=== PATIENT | female | born 1980 | race Caucasian/White ===

== ENCOUNTER 2021-02-26 00:45 | Day surgery (SDC) | payer BC, SELFPAY ==
[2021-02-16 09:16] VITALS: BMI 22.4
[2021-02-26 06:25] VITALS: BP 97/78; PULSE 86; RESP 16; TEMP 36.4; O2SAT 98
[2021-02-26] MEDS: LACTATED RINGERS 1,000 ML 150 ML IV CONT (06:45)
--- NOTE | 2021-02-26 07:16 | WPDANESEPPF ---
Anes - Initial Pre Proc Eval Procedure: Operation Date: 02/26/21 07:30 Proposed Procedures p Colonoscopy - Jerry Norman MD Date/Time: 02/26/21 07:16 Surgeon: Jerry Norman MD Pre Op Diagnosis: Rectal Bleeding Patient Data Age: 40 Gender: F Height: 1.65 m Weight: 60.5 kg Last Vital Signs Temp 97.5 F L 02/26/21 06:25 Pulse 86 02/26/21 06:25 Resp 16 02/26/21 06:25 BP 97/78 L 02/26/21 06:25 Pulse Ox 98 02/26/21 06:25 Allergies Allergy/AdvReac Type Severity Reaction Status Date / Time cephalexin Allergy Intermediate hives Verified 02/26/21 06:23 Sulfa (Sulfonamide Allergy Intermediate Hives Verified 02/26/21 06:23 Antibiotics) Home Medications Medication Instructions Recorded Confirmed Type levothyroxine 88 mcg capsule 88 mcg PO DAILY 01/10/21 02/26/21 History Adults Multivitamin 1 tab-cap PO DAILY 02/16/21 02/26/21 History Patient hx anesthesia problems: none Family hx anesthesia problems: none PMFSH Past Medical History Medical History (Updated 01/10/21 @ 09:41 by Dottie Thompson MA) Jaw cyst Thyroid disorder Family History Family History (Updated 01/10/21 @ 09:42 by Dottie Thompson MA) Mother Hypertension Alcohol abuse Father Family history of lung cancer Other Family history of emphysema Family history of thyroid disease Social History Social History (Updated 01/10/21 @ 09:43 by Dottie Thompson MA) Smoking status: Never smoker Alcohol intake: current Drinks per week: 2 Substance use: never Substance use type: does not use Living arrangements: with family 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 Gender identity (if verbalized by the patient): Female Sexual Orientation (if Verbalized by the Patient): Straight or Heterosexual Spiritual care concerns: No Agree to blood products: Yes Anes - Eval Final PreProcedure Day of Procedure 02/26/21 07:16 Patient weight: normal Heart: regular rate and rhythm Lungs: clear to auscultation Airway: Mallampati scale class II Neurological: alert and oriented Last oral intake: >/= 8 hours ASA classification: II Emergent: no Anesthetic plan: proceed Anesthesia type and monitoring: general GIVS and standard monitoring Informed Consent: The patient's anesthetic plan and its attendant risks and benefits were discussed with the patient/family/POA. Questions were solicited and answers provided to the satisfaction of the patient/family/POA.
--- NOTE | 2021-02-26 07:29 | PM.HPGS ---
History of Present Illness History of Present Illness Consent: Risks, benefits, and alternatives have been discussed and questions answered. Patient agrees to proceed with procedure. Chief complaint: Rectal Bleeding Narrative: Sarina Reardon is a 40 year old female with intermittent rectal bleeding, never had colonoscopy Review of Systems Constitutional: Constitutional: Denies headache(s) and Denies weakness Eyes: Eyes: Denies blurry vision ENT: Reports Normal hearing present, Denies headache(s) and Denies neck pain Cardiovascular: Cardiovascular: Denies chest pain and Denies dyspnea Respiratory: Respiratory: Denies dyspnea Gastrointestinal: Gastrointestinal: Reports no additional gastrointestinal complaints Genitourinary: Genitourinary: Denies dysuria Musculoskeletal: Musculoskeletal: Denies neck pain Integumentary/Breasts: Skin/Breast: Denies dry skin Neurologic: Reports Normal hearing present, Denies headache(s) and Denies weakness Psychiatric: Psychiatric: Denies anxiety Endocrine: Endocrine: Denies change in body appearance Hematologic/Lymphatic: Hematologic/Lymphatic: Denies easy bleeding Allergic/Immunologic: Allergic/Immunologic: Denies urticaria PMFSH Past Medical History Medical History (Updated 02/26/21 @ 07:30 by Jerry Norman MD) Jaw cyst Rectal bleeding Thyroid disorder Family History Family History (Updated 01/10/21 @ 09:42 by Dottie Thompson MA) Mother Hypertension Alcohol abuse Father Family history of lung cancer Other Family history of emphysema Family history of thyroid disease Social History Social History (Updated 01/10/21 @ 09:43 by Dottie Thompson MA) Smoking status: Never smoker Alcohol intake: current Drinks per week: 2 Substance use: never Substance use type: does not use Living arrangements: with family 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 Gender identity (if verbalized by the patient): Female Sexual Orientation (if Verbalized by the Patient): Straight or Heterosexual Spiritual care concerns: No Agree to blood products: Yes Meds Home Medications and Allergies Home Medications Medication Instructions Recorded Confirmed Type levothyroxine 88 mcg capsule 88 mcg PO DAILY 01/10/21 02/26/21 History Adults Multivitamin 1 tab-cap PO DAILY 02/16/21 02/26/21 History Allergies Allergy/AdvReac Type Severity Reaction Status Date / Time cephalexin Allergy Intermediate hives Verified 02/26/21 06:23 Sulfa (Sulfonamide Allergy Intermediate Hives Verified 02/26/21 06:23 Antibiotics) Vital Signs Vital Signs - 24 hr 02/26/21 06:25 Temperature 97.5 F L Pulse Rate 86 Respiratory Rate 16 Blood Pressure 97/78 L Pulse Oximetry 98 Exam Const: General: comfortable and no acute distress HENMT: General nose exam: Normal nares present Eyes: General: appearance normal, both eyes and all related structures Neck: Neck: no JVD Resp: Auscultation: clear to auscultation bilaterally Cardio: Rate: regular rate Rhythm: regular rhythm GI: Inspection: non-distended GI Palp: Yes Soft to palpation Skin: General skin exam: normal color Neuro: General: gait normal Speech: normal speech Extrem: General: normal to inspection Psych: Mental Status: mental status grossly normal Assessment and Plan Assessment and plan (1) Rectal bleeding: Code(s): K62.5 - Hemorrhage of anus and rectum Status: Acute Assessment and Plan: colonoscopy
[2021-02-26 07:47] VITALS: BP 90/59; PULSE 68; RESP 20; O2SAT 100
[2021-02-26 07:57] VITALS: BP 92/58; PULSE 65; RESP 22; O2SAT 100
[2021-02-26 08:07] VITALS: BP 106/70; PULSE 62; RESP 16; O2SAT 99
== END 2021-02-26 08:19 | disposition home or self-care (01) ==
PROVIDERS: Visit Provider Internal Medicine Gastroenterology
PROC: 0DJD8ZZ Inspection of Lower Intestinal Tract, Via Natural or Artificial Opening Endoscopic (ICD-10-PCS; CPT 45378; principal; 2021-02-26 07:30)
DX: K92.1 Melena (principal); D12.3 Benign neoplasm of transverse colon; K64.8 Other hemorrhoids; E07.9 Disorder of thyroid, unspecified
CPT/HCPCS: 45385; 88305; J2704; J7120

== ENCOUNTER 2022-04-12 08:25 | Outpatient (CLI) | payer BC, SELFPAY ==
[2022-04-12 19:27] LABS: Alanine Aminotransferase 16 U/L (6-35); Albumin Level 4.4 g/dL (3.5-5.1); Alkaline Phosphatase 29 U/L (38-126); Anion Gap 12 mmol/L (8-16); Aspartate Amino Transferase 22 U/L (14-36); Bilirubin,Total 0.5 mg/dL (0.2-1.3); Blood Urea Nitrogen 13 mg/dL (7-17); Carbon Dioxide 25 mmol/L (22-30); Chloride 102 mmol/L (98-107); Estimated Glomerular Filt Rate > 60; Glucose 83 mg/dL (65-110); Magnesium 1.9 mg/dL (1.6-2.3); Potassium 4.4 mmol/L (3.4-5.0); Sodium 139 mmol/L (137-145)
[2022-04-12 19:53] LABS: Vitamin D 25 Hydroxy 46.8 ng/mL
[2022-04-12 19:58] LABS: Thyroid Stimulating Hormone 0.697 uIU/mL (0.465-4.680)
[2022-04-12 20:14] LABS: Iron 105 ug/dL (37-170); Percent Iron Saturation 34 % (20-50)
[2022-04-12 20:15] LABS: Free T4 Free Thyroxine 1.25 ng/mL (0.78-2.19)
[2022-04-12 21:19] LABS: Parathyroid Intact 26.3 pg/mL (7.5-53.5)
[2022-04-16 13:11] LABS: Vitamin B6 26.6 ng/mL (2.1-21.7)
== END 2022-04-12 08:26 | disposition home or self-care (01) ==
LOC: ANHGOSHLAB 08:29
PROVIDERS: PCP Nurse Practitioner; Visit Provider Nurse Practitioner
DX: E88.89 Other specified metabolic disorders (principal)
CPT/HCPCS: 36415; 80053; 82306; 82607; 83540; 83550; 83735; 83970; 84100; 84207; 84439; 84443

== ENCOUNTER 2022-08-02 08:22 | Outpatient (CLI) | payer BC, SELFPAY ==
[2022-08-02 14:48] LABS: Kit Draw Collected
== END 2022-08-02 08:23 | disposition home or self-care (01) ==
LOC: ANHGOSHLAB 08:24
PROVIDERS: PCP Nurse Practitioner; Visit Provider Nurse Practitioner
DX: E88.89 Other specified metabolic disorders (principal)
CPT/HCPCS: 36415

== ENCOUNTER → 2022-08-16 14:48 | Outpatient (CLI) | payer BC, SELFPAY ==
--- NOTE | ~2022-08-16 | DEXA_ITS ---
Bone Density Report Name: DON OLSON Age: 42 Sex: Female Ethnicity: White Date of : 1980 Indication: height loss; Referring Provider: LUIS F, REJI Study: Bone densitometry was performed. Exam Date: August 16, 2022 Accession number: [id number] Bone Density: Region BMD T-score Z-score Classification AP Spine (L1-L4) 1.025 -0.2 0.1 Normal Femoral Neck (Left) 0.835 -0.1 0.2 Normal Total Hip (Left) 0.963 0.2 0.4 Normal Femoral Neck (Right) 0.852 0.0 0.4 Normal Total Hip (Right) 0.969 0.2 0.4 Normal Total Hip Mean 0.966 0.2 0.4 Normal World Health Organization criteria for BMD impression classify patients as: Normal (T-score at or above -1.0), Osteopenia (T-score between -1.0 and -2.5), or Osteoporosis (T-score at or below -2.5). 10-year Fracture Risk: FRAX not reported because: Premenopausal woman All T-scores for Spine Total, Hip Total, Femoral Neck at or above -1.0 Clinical Information Provided by Patient: Patient maximum height was 65 Drinks caffeinated beverages Onset of menses at age 15 Premenopausal Number of children 2 Missed period for more than 6 months in a row Impression: The patient's bone mass is within expected range for age, gender and ethnicity. Discussion: BONE DENSITY IS WITHIN EXPECTED LIMITS FOR AGE, SEX AND RACE. Bone density is within expected limits for age, sex and race at all sites measured. The patient should follow a healthful lifestyle (good nutrition with adequate calcium and vitamin D, and appropriate weight-bearing exercise). Follow-Up: Consider repeating this study in 5 years or sooner if there is some new clinical indication. Reported by: EDY on 08/16/2022 3:05:00 PM. Reviewed, dictated and finalized at location A. [facility]
== END ==
PROVIDERS: PCP Obstetrics & Gynecology; Visit Provider Nurse Practitioner
DX: E88.89 Other specified metabolic disorders (principal)
CPT/HCPCS: 77080

== ENCOUNTER 2022-09-27 07:13 | Outpatient (CLI) | payer BC, SELFPAY ==
--- NOTE | ~2022-09-27 | MM_ITS ---
EXAMINATION: MM screening diana BI w sahil HISTORY: Screening mammogram TECHNIQUE: Craniocaudal and mediolateral oblique 3-D tomosynthesis images were obtained and synthetic 2-D images were generated. CAD analysis was submitted and interpreted. COMPARISON: 04/09/2019 BREAST PARENCHYMAL COMPOSITION: The breasts are heterogeneously dense, which may obscure small masses . FINDINGS: No suspicious mass, calcification, or architectural distortion are identified in either jenni ast to suggest malignancy. There has been no suspicious interval change. IMPRESSION: 1. No mammographic evidence of malignancy. 2. Recommend routine screening mammography in one year. BI-RADS Category 1: Negative Reviewed, dictated and finalized at location A.
== END 2022-09-27 07:14 | disposition home or self-care (01) ==
PROVIDERS: PCP Obstetrics & Gynecology; Visit Provider Nurse Practitioner Obstetrics & Gynecology
DX: Z12.31 Encounter for screening mammogram for malignant neoplasm of breast (principal)
CPT/HCPCS: 77063; 77067

== ENCOUNTER 2023-10-15 13:20 | Outpatient (CLI) | payer BC, SELFPAY ==
--- NOTE | ~2023-10-15 | MM_ITS ---
EXAMINATION: MM screening diana BI w sahil HISTORY: Screening mammogram TECHNIQUE: Craniocaudal and mediolateral oblique 3-D tomosynthesis images were obtained and synthetic 2-D images were generated. CAD analysis was submitted and interpreted. COMPARISON: September 27, 2022 bilateral screening mammogram 04/09/2019 bilateral diagnostic mammogram and Limited right breast ultrasound BREAST PARENCHYMAL COMPOSITION: The breasts are extremely dense, which lowers the sensitivity of mamm ography. FINDINGS: There is no evidence of suspicious mass, calcification, or architectural distortion to sugg est malignancy in either breast. There has been no suspicious interval change. IMPRESSION: 1. No mammographic evidence of malignancy. 2. Recommend routine screening mammography in one year. BI-RADS Category 1: Negative Reviewed, dictated and finalized at location B.
== END 2023-10-15 13:21 ==
LOC: MICIMG 13:20
PROVIDERS: PCP Nurse Practitioner Obstetrics & Gynecology; Visit Provider Nurse Practitioner Obstetrics & Gynecology
DX: Z12.31 Encounter for screening mammogram for malignant neoplasm of breast (principal)
CPT/HCPCS: 77063; 77067

== ENCOUNTER 2024-06-11 06:35 | Outpatient (CLI) | payer BC, SELFPAY ==
--- NOTE | ~2024-06-11 | MR_ITS ---
EXAMINATION: MR breast BI wo/w con INDICATION: Dense breast tissue TECHNIQUE: Axial VIBRANT pre and dynamic post contrast, Sagittal VIBRANT post contrast, Axial T2 STIR ASSET COMPARISON: Mammography dated 10/15/2023 CONTRAST: Multihance, 12 cc BREAST COMPOSITION: Extreme fibroglandular tissue FINDINGS: RIGHT BREAST: There is minimal background parenchymal enhancement. No abnormal enhancement is present after contrast administration. No pathologically enlarged axillary or internal mammary lymph nodes a re identified. LEFT BREAST: There is minimal background parenchymal enhancement. No abnormal enhancement is present after contrast administration. No pathologically enlarged axillary or internal mammary lymph nodes ar e identified. IMPRESSION: No evidence for malignancy. BI-RADS Category 1: Negative Reviewed, dictated and finalized at location . [facility]
== END 2024-06-11 06:36 | disposition home or self-care (01) ==
LOC: ANHIMG 06:38
PROVIDERS: PCP Nurse Practitioner Obstetrics & Gynecology; Visit Provider Obstetrics & Gynecology
DX: R92.343 Mammographic extreme density, bilateral breasts (principal)
CPT/HCPCS: 77049; A9577; C8908